=== PATIENT | male | born 1980 | race African-American/Black ===

== ENCOUNTER 2023-03-09 20:08 | Emergency (ER) | payer OTHER ==
[2023-03-09 20:14] VITALS: BP 125/79; PULSE 84; RESP 18; TEMP 98.2; BMI 34.4
[2023-03-09 21:44] LABS: BASO % 0.3 % (0-2.0); EOS % 0.2 % (0-4.5); HEMATOCRIT 46.2 % (35.4-49); HEMOGLOBIN 15.5 GM/dL (11.7-16.9); LYMPH % 17.6 % (8-40); MCH 31.5 pg (25.7-33.7); MCHC 33.7 g/dl (32.0-35.9); MEAN CELL VOLUME 93.7 fl (80-96); MEAN PLT VOLUME 8.1 fl (7.5-11.1); NEUT % 76.9 % (42.8-82.8); PLATELET COUNT 289 10^3/uL (134-434); RBC 4.93 M/mm3 (4.00-5.60); RDW 13.3 % (11.9-15.9); WHITE BLOOD COUNT 12.8 K/mm3 (4.0-10.0)
[2023-03-09 22:03] LABS: POTASSIUM 3.9 mmol/L (3.5-5.1)
[2023-03-09 22:05] LABS: ALBUMIN 4.1 g/dl (3.4-5.0); BLOOD UREA NITROGEN 11.8 mg/dL (7-18); CALCIUM 9.5 mg/dL (8.5-10.1)
[2023-03-09 22:10] LABS: BILIRUBIN,TOTAL 0.6 mg/dL (0.2-1); TOT PROT 8.1 g/dl (6.4-8.2)
== END 2023-03-09 23:19 | disposition left against medical advice (07) ==
LOC: JER 20:08
DX: R07.81 Pleurodynia (principal); X50.1XXA Overexertion from prolonged static or awkward postures, initial encounter
CPT/HCPCS: 0241U-QW; 36415; 71046-TC-FY; 80053; 84484; 85025; 85379; 93005; 93010; 99285-25